=== PATIENT | female | born 1935 | race Asian ===

== ENCOUNTER 2017-09-29 13:52 | Emergency (ER) | payer MEDICARE ==
[2017-09-29 14:57] LABS: BASOPHILS % (AUTO) 0.7 % (0.0-5.0); EOSINOPHILS % (AUTO) 2.1 % (0.0-8.0); HEMATOCRIT 29.4 % (36-48); LYMPHOCYTES % (AUTO) 16.4 % (21.0-51.0); MEAN CORPUSCULAR HEMOGLOBIN 23.5 pg (27.0-33.0); MEAN CORPUSCULAR HGB CONC 32.9 g/dL (32.0-36.0); MEAN CORPUSCULAR VOLUME 71.5 fL (79-99); NEUTROPHILS % (AUTO) 64.8 % (40.0-77.0); NUCLEATED RED BLOOD CELLS 0.1 % (0.0-0.19); PLATELET COUNT (AUTO) 390 K/uL (130-400); RED BLOOD CELL COUNT(AUTO) 4.12 MIL/uL (4.00-5.50); RED CELL DISTRIBUTION WIDTH 14.6 % (11.0-15.5)
[2017-09-29 15:16] LABS: CREATININE 0.7 mg/dL (0.5-1.5); POTASSIUM 3.9 mmol/L (3.5-5.1)
[2017-09-29 15:20] LABS: ALBUMIN 3.7 g/dL (3.5-5.0); BILIRUBIN,TOTAL 0.7 mg/dL (0.2-1.0); TOTAL PROTEIN, SERUM 8.7 g/dL (6.0-8.3)
[2017-09-29] MEDS ORDERED: IPRATROPIUM/ALBUTEROL SULFATE 3 ML SOLUTION IH ONE (15:49)
[2017-09-29 18:08] LABS: CREATINE KINASE MB < 0.5 ng/mL (0.5-3.6); CREATINE KINASE, TOTAL 75 U/L (21-232)
== END 2017-09-29 18:49 | disposition home or self-care (01) ==
LOC: EDH 13:52
DX: J30.9 Allergic rhinitis, unspecified (principal); R05 Cough; I10 Essential (primary) hypertension; Z88.6 Allergy status to analgesic agent; Z91.041 Radiographic dye allergy status
CPT/HCPCS: 36415; 71045; 80053; 82550; 82553; 83880; 84484; 85025; 87804; 93005; 94640

== ENCOUNTER 2019-06-10 14:48 | Emergency (ER) | payer MEDICARE, MEDICAID ==
[2019-06-10 15:40] LABS: BASOPHILS % (AUTO) 0.4 % (0.0-5.0); EOSINOPHILS % (AUTO) 0.2 % (0.0-8.0); HEMATOCRIT 32.6 % (36-48); LYMPHOCYTES % (AUTO) 3.3 % (21.0-51.0); MEAN CORPUSCULAR HEMOGLOBIN 23.5 pg (27.0-33.0); MEAN CORPUSCULAR HGB CONC 31.8 g/dL (32.0-36.0); MEAN CORPUSCULAR VOLUME 73.6 fL (79-99); MONOCYTES % (AUTO) 8.7 % (3.0-13.0); NEUTROPHILS % (AUTO) 87.4 % (40.0-77.0); PLATELET COUNT (AUTO) 246 K/uL (130-400); RED BLOOD CELL COUNT(AUTO) 4.43 MIL/uL (4.00-5.50); RED CELL DISTRIBUTION WIDTH 13.9 % (11.0-15.5); WHITE BLOOD COUNT (AUTO) 15.8 K/uL (4.8-10.8)
[2019-06-10] MEDS ORDERED: ACETAMINOPHEN 325 MG TAB ONE (15:45)
[2019-06-10] MEDS ORDERED: TETANUS/DIPHTHERIA TOXOID [ADULT] 0.5 ML VIAL IM ONE (15:46)
[2019-06-10 16:16] LABS: CREATININE 0.8 mg/dL (0.5-1.5); POTASSIUM 3.7 mmol/L (3.5-5.1)
[2019-06-10 16:18] LABS: APPEARANCE,URINE Clear (CLEAR); BILIRUBIN,URINE Negative (NEGATIVE); COLOR,URINE Yellow (YELLOW); GLUCOSE, URINE (UA) Negative (NEGATIVE); KETONES,URINE Negative (NEGATIVE); LEUKOCYTE ESTERASE ,URINE Negative (NEGATIVE); NITRATE,URINE Negative (NEGATIVE); OCCULT BLOOD,URINE Negative (NEGATIVE); PH,URINE 7.5 (5.0-8.0); PROTEIN,URINE Trace mg/dL (NEGATIVE); UROBILINOGEN,URINE 0.2 mg/dL (0.2-1.0)
[2019-06-10 16:21] LABS: ALBUMIN 3.9 g/dL (3.5-5.0); BILIRUBIN,TOTAL 0.6 mg/dL (0.2-1.0)
[2019-06-10 16:48] LABS: BACTERIA,URINE Rare /HPF (None Seen); RBC,URINE 0-1 /HPF (0-1); SQUAMOUS EPITHELIAL CELL,UR Rare /HPF (0-2); WBC,URINE 0-1 /HPF (0-1)
[2019-06-10] MEDS ORDERED: OCTYL 2-CYANOACRYLATE 1 EACH TP ONE (18:15)
== END 2019-06-10 19:18 | disposition home or self-care (01) ==
LOC: EDH 14:48
DX: S22.32XA Fracture of one rib, left side, initial encounter for closed fracture (principal); S01.01XA Laceration without foreign body of scalp, initial encounter; S40.012A Contusion of left shoulder, initial encounter; M25.552 Pain in left hip; M25.562 Pain in left knee; I10 Essential (primary) hypertension; Z88.0 Allergy status to penicillin; Z88.6 Allergy status to analgesic agent; Z91.041 Radiographic dye allergy status; W18.39XA Other fall on same level, initial encounter; Y93.89 Activity, other specified; Y92.89 Other specified places as the place of occurrence of the external cause; Y99.8 Other external cause status
CPT/HCPCS: 12032; 36415; 70450; 71250; 72125; 73030; 73562; 74176; 80053; 81001; 82550; 84484; 85025; 90471; 90714; 93005

== ENCOUNTER 2019-06-17 03:02 | Emergency (ER) | payer MEDICARE, MEDICAID ==
[2019-06-17 03:35] LABS: APPEARANCE,URINE Clear (CLEAR); BILIRUBIN,URINE Negative (NEGATIVE); COLOR,URINE Yellow (YELLOW); GLUCOSE, URINE (UA) Negative (NEGATIVE); KETONES,URINE Negative (NEGATIVE); LEUKOCYTE ESTERASE ,URINE Negative (NEGATIVE); NITRATE,URINE Negative (NEGATIVE); OCCULT BLOOD,URINE Negative (NEGATIVE); PH,URINE 7.5 (5.0-8.0); PROTEIN,URINE Trace mg/dL (NEGATIVE); UROBILINOGEN,URINE 0.2 mg/dL (0.2-1.0)
[2019-06-17 03:48] LABS: BASOPHILS % (AUTO) 0.3 % (0.0-5.0); EOSINOPHILS % (AUTO) 0.1 % (0.0-8.0); HEMATOCRIT 31.7 % (36-48); LYMPHOCYTES % (AUTO) 9.9 % (21.0-51.0); MEAN CORPUSCULAR HEMOGLOBIN 23.9 pg (27.0-33.0); MEAN CORPUSCULAR HGB CONC 32.7 g/dL (32.0-36.0); MONOCYTES % (AUTO) 6.4 % (3.0-13.0); NEUTROPHILS % (AUTO) 83.3 % (40.0-77.0); NUCLEATED RED BLOOD CELLS 0.1 % (0.0-0.19); PLATELET COUNT (AUTO) 270 K/uL (130-400); RED BLOOD CELL COUNT(AUTO) 4.34 MIL/uL (4.00-5.50); RED CELL DISTRIBUTION WIDTH 14.2 % (11.0-15.5); WHITE BLOOD COUNT (AUTO) 8.6 K/uL (4.8-10.8)
[2019-06-17] MEDS ORDERED: SODIUM CHLORIDE 0.9% 500ML 500 ML IV ONE (03:49)
[2019-06-17] MEDS ORDERED: ACETAMINOPHEN EXTRA STRENGTH 500 MG TABLET ONE (03:49)
[2019-06-17 03:58] LABS: CREATININE 0.7 mg/dL (0.5-1.5); POTASSIUM 4.1 mmol/L (3.5-5.1)
[2019-06-17 04:03] LABS: ALBUMIN 3.9 g/dL (3.5-5.0); BILIRUBIN,TOTAL 0.8 mg/dL (0.2-1.0); TOTAL PROTEIN, SERUM 8.2 g/dL (6.0-8.3)
[2019-06-17 04:08] LABS: INR 0.96 (0.85-1.15); PARTIAL THROMBOPLASTIN TIME 27.1 SEC (26.3-35.5); PROTHROMBIN TIME 10.1 SEC (9.6-11.6)
[2019-06-17 04:22] LABS: B-TYPE NATRIURETIC PEPTIDE 49 pg/mL (0-100)
[2019-06-17] MEDS ORDERED: LIDOCAINE 5% TOPICAL PATCH TP ONE (05:24)
== END 2019-06-17 06:13 | disposition home or self-care (01) ==
LOC: EDH 03:02
DX: S00.83XA Contusion of other part of head, initial encounter (principal); I10 Essential (primary) hypertension; Z88.0 Allergy status to penicillin; Z91.041 Radiographic dye allergy status; W18.39XA Other fall on same level, initial encounter; Y93.89 Activity, other specified; Y92.89 Other specified places as the place of occurrence of the external cause; Y99.8 Other external cause status
CPT/HCPCS: 36415; 70450; 71046; 72100; 80053; 81003; 82550; 83605; 83880; 84484; 85025; 85610; 85730; 99285; J7040

== ENCOUNTER 2019-06-23 01:15 | Emergency (ER) | payer MEDICARE, MEDICAID ==
[2019-06-23] MEDS ORDERED: ONDANSETRON HCL 4 MG/2 ML VIAL ONE (01:48)
[2019-06-23] MEDS ORDERED: MORPHINE SULFATE 2 MG/ML 1ML SYG ONE (01:48)
[2019-06-23] MEDS ORDERED: SODIUM CHLORIDE 0.9% 1000ML 1,000 ML IV ONE (01:49)
[2019-06-23 01:51] LABS: BASOPHILS % (AUTO) 0.4 % (0.0-5.0); EOSINOPHILS % (AUTO) 0.7 % (0.0-8.0); HEMATOCRIT 32.7 % (36-48); LYMPHOCYTES % (AUTO) 16.7 % (21.0-51.0); MEAN CORPUSCULAR HEMOGLOBIN 23.6 pg (27.0-33.0); MEAN CORPUSCULAR HGB CONC 32.4 g/dL (32.0-36.0); MEAN CORPUSCULAR VOLUME 72.9 fL (79-99); MONOCYTES % (AUTO) 11.9 % (3.0-13.0); NEUTROPHILS % (AUTO) 70.3 % (40.0-77.0); NUCLEATED RED BLOOD CELLS 0.1 % (0.0-0.19); PLATELET COUNT (AUTO) 327 K/uL (130-400); RED BLOOD CELL COUNT(AUTO) 4.48 MIL/uL (4.00-5.50); RED CELL DISTRIBUTION WIDTH 14.2 % (11.0-15.5); WHITE BLOOD COUNT (AUTO) 10.5 K/uL (4.8-10.8)
[2019-06-23 02:01] LABS: INR 0.92 (0.85-1.15); PARTIAL THROMBOPLASTIN TIME 24.6 SEC (26.3-35.5); PROTHROMBIN TIME 9.7 SEC (9.6-11.6)
[2019-06-23 02:05] LABS: CREATININE 0.8 mg/dL (0.5-1.5); POTASSIUM 3.9 mmol/L (3.5-5.1)
[2019-06-23 02:10] LABS: BILIRUBIN,TOTAL 0.6 mg/dL (0.2-1.0); TOTAL PROTEIN, SERUM 8.5 g/dL (6.0-8.3)
[2019-06-23] MEDS ORDERED: FENTANYL CITRATE PF 50 MCG/1 ML 2ML VIAL ONE (02:49)
[2019-06-23] MEDS ORDERED: LIDOCAINE 5% TOPICAL PATCH TP ONE (03:41)
== END 2019-06-23 03:57 | disposition home or self-care (01) ==
LOC: EDH 01:15
DX: S42.292A Other displaced fracture of upper end of left humerus, initial encounter for closed fracture (principal); S09.8XXA Other specified injuries of head, initial encounter; I10 Essential (primary) hypertension; Z88.0 Allergy status to penicillin; Z88.6 Allergy status to analgesic agent; Z91.041 Radiographic dye allergy status; Z91.81 History of falling; W18.39XA Other fall on same level, initial encounter; Y93.89 Activity, other specified; Y92.098 Other place in other non-institutional residence as the place of occurrence of the external cause; Y99.8 Other external cause status
CPT/HCPCS: 36415; 70450; 71045; 73030; 73060; 80053; 82550; 84484; 85025; 85610; 85730; 93005; 96374; 96375; 99285; J2405; J3010; J7030

== ENCOUNTER 2019-06-24 12:04 | Inpatient (IN) | payer MEDICARE, MEDICAID ==
[~2019-06-24] VITALS: Ht 147.3 cm; Wt 53.4 kg
[2019-06-24] MEDS ORDERED: FENTANYL CITRATE PF 50 MCG/1 ML 2ML VIAL ONE (12:33)
[2019-06-24 13:04] LABS: BASOPHILS % (AUTO) 0.4 % (0.0-5.0); EOSINOPHILS % (AUTO) 0.8 % (0.0-8.0); HEMATOCRIT 28.7 % (36-48); LYMPHOCYTES % (AUTO) 8.4 % (21.0-51.0); MEAN CORPUSCULAR HEMOGLOBIN 23.6 pg (27.0-33.0); MEAN CORPUSCULAR HGB CONC 32.2 g/dL (32.0-36.0); MEAN CORPUSCULAR VOLUME 73.2 fL (79-99); MONOCYTES % (AUTO) 11.8 % (3.0-13.0); NEUTROPHILS % (AUTO) 78.6 % (40.0-77.0); PLATELET COUNT (AUTO) 274 K/uL (130-400); RED BLOOD CELL COUNT(AUTO) 3.92 MIL/uL (4.00-5.50); RED CELL DISTRIBUTION WIDTH 14.6 % (11.0-15.5)
[2019-06-24 13:12] LABS: CREATININE 0.7 mg/dL (0.5-1.5)
[2019-06-24 13:15] LABS: INR 0.91 (0.85-1.15); PARTIAL THROMBOPLASTIN TIME 27.5 SEC (26.3-35.5); PROTHROMBIN TIME 9.6 SEC (9.6-11.6)
[2019-06-24 13:19] LABS: ALBUMIN 3.5 g/dL (3.5-5.0); BILIRUBIN,TOTAL 0.5 mg/dL (0.2-1.0); TOTAL PROTEIN, SERUM 7.9 g/dL (6.0-8.3)
[2019-06-24] MEDS ORDERED: ZOLPIDEM TARTRATE 5 MG TAB PO PRN (14:30)
[2019-06-24] MEDS: LEVOFLOXACIN 500 MG/D5W 100 ML 100 ML IV SCH (14:30)
[2019-06-24] MEDS ORDERED: ACETAMINOPHEN 325 MG TAB PO PRN (14:30)
[2019-06-24] MEDS ORDERED: SODIUM CHLORIDE 0.9% 1000ML 1,000 ML IV SCH (14:45)
[2019-06-24] MEDS ORDERED: SODIUM CHLORIDE 0.9% 1000ML 1,000 ML IV ONE (15:35)
[2019-06-24 16:57] VITALS: BP 137/49
[2019-06-24] MEDS: MORPHINE SULFATE 2 MG/ML 1ML SYG IV PRN (17:32)
[2019-06-24 20:01] VITALS: BP 132/63
--- NOTE | 2019-06-24 20:30 | NUR ---
DR. KAMRYN SOLORZANO NOTIFIED UPON PATIENT ARRIVAL TO FLOOR. MD STATED DO NOT KEEP PATIENT NPO AND HE WILL SEE PATIENT TOMORROW.
[2019-06-24] MEDS: HYDROCODONE/ACETAMINOPHEN 5/325 MG TAB PO PRN (20:48)
[2019-06-24] MEDS: FAMOTIDINE/PF 20 MG/2 ML VIAL IV SCH (21:18)
[2019-06-25] MEDS: HYDROCODONE/ACETAMINOPHEN 5/325 MG TAB PO PRN ×3 (01:14→15:37)
[2019-06-25 04:16] VITALS: BP 136/62
[2019-06-25 04:17] LABS: HEMATOCRIT 27.2 % (36-48); MEAN CORPUSCULAR HGB CONC 33.4 g/dL (32.0-36.0); PLATELET COUNT (AUTO) 251 K/uL (130-400); RED BLOOD CELL COUNT(AUTO) 3.78 MIL/uL (4.00-5.50); RED CELL DISTRIBUTION WIDTH 14.5 % (11.0-15.5); WHITE BLOOD COUNT (AUTO) 11.3 K/uL (4.8-10.8)
[2019-06-25 04:26] LABS: INR 0.92 (0.85-1.15); PROTHROMBIN TIME 9.7 SEC (9.6-11.6)
[2019-06-25 04:47] LABS: ALBUMIN 3.3 g/dL (3.5-5.0); BILIRUBIN,TOTAL 0.7 mg/dL (0.2-1.0); CREATININE 0.7 mg/dL (0.5-1.5); POTASSIUM 3.9 mmol/L (3.5-5.1); TOTAL PROTEIN, SERUM 7.7 g/dL (6.0-8.3)
[2019-06-25] MEDS ORDERED: SODIUM CHLORIDE 0.9% 1000ML 1,000 ML IV SCH (06:00)
[2019-06-25 07:34] VITALS: BP 167/71
[2019-06-25] MEDS: FAMOTIDINE/PF 20 MG/2 ML VIAL IV SCH ×2 (08:42→20:09)
[2019-06-25] MEDS: ENOXAPARIN SODIUM 30 MG/0.3 ML SQ SCH (08:49)
--- NOTE | 2019-06-25 10:05 | NUR ---
Nutrition Intervention: Nutrition consult due to poor appetite, plan for surgery. Pt. on GI soft [place] diet. Pt. reports good p.o. intake this morning. Spoke with pt. regarding nutritional supplementation and pt. agreed to try. Labs reviewed(Alb 3.3). LBM: 06/24/19, per pt. clara FINK. BMI: 24.3, normal. Recommendations: 1) Rec. Vanilla Ensure QD with lunch meal. 2) Continue to monitor pt's nutritional status. 3) Consult RD as nutrition concerns arise. Addendum: 06/25/19 at [address] Amended: Links added.
[2019-06-25 11:09] VITALS: BP 128/58
[2019-06-25] MEDS: MORPHINE SULFATE 2 MG/ML 1ML SYG IV PRN (11:51)
[2019-06-25] MEDS: LEVOFLOXACIN 500 MG/D5W 100 ML 100 ML IV SCH (14:46)
[2019-06-25 16:59] VITALS: BP 147/71
[2019-06-25] MEDS: ONDANSETRON HCL 4 MG/2 ML VIAL IV PRN (17:40)
[2019-06-25] MEDS ORDERED: AMLO5TAB9 PO (18:44)
[2019-06-25] MEDS ORDERED: SOLI10TA PO (18:44)
[2019-06-25] MEDS ORDERED: CELE-84 PO (18:44)
[2019-06-25] MEDS ORDERED: OMEP20TA25 PO (18:44)
[2019-06-25] MEDS ORDERED: MONT10TA24 PO (18:44)
[2019-06-25 19:03] VITALS: BP 138/62
[2019-06-25 21:58] LABS: APPEARANCE,URINE Clear (CLEAR); BILIRUBIN,URINE Negative (NEGATIVE); COLOR,URINE Yellow (YELLOW); GLUCOSE, URINE (UA) Negative (NEGATIVE); KETONES,URINE Negative (NEGATIVE); LEUKOCYTE ESTERASE ,URINE Trace (NEGATIVE); NITRATE,URINE Negative (NEGATIVE); OCCULT BLOOD,URINE Negative (NEGATIVE); PH,URINE 6.5 (5.0-8.0); PROTEIN,URINE POS 1+ mg/dL (NEGATIVE)
[2019-06-25 22:03] LABS: BACTERIA,URINE Few /HPF (None Seen); MUCUS,URINE Moderate LPF (None Seen)
[2019-06-25 23:45] VITALS: BP 134/61
[2019-06-26] MEDS: HYDROCODONE/ACETAMINOPHEN 5/325 MG TAB PO PRN ×3 (00:31→22:49)
[2019-06-26 03:30] VITALS: BP 143/61
[2019-06-26 05:28] LABS: HEMATOCRIT 25.5 % (36-48); MEAN CORPUSCULAR HEMOGLOBIN 23.9 pg (27.0-33.0); MEAN CORPUSCULAR HGB CONC 33.6 g/dL (32.0-36.0); MEAN CORPUSCULAR VOLUME 71.2 fL (79-99); NUCLEATED RED BLOOD CELLS 0.1 % (0.0-0.19); PLATELET COUNT (AUTO) 262 K/uL (130-400); RED BLOOD CELL COUNT(AUTO) 3.57 MIL/uL (4.00-5.50); RED CELL DISTRIBUTION WIDTH 14.2 % (11.0-15.5); WHITE BLOOD COUNT (AUTO) 11.5 K/uL (4.8-10.8)
[2019-06-26 05:29] LABS: CREATININE 0.6 mg/dL (0.5-1.5); POTASSIUM 3.6 mmol/L (3.5-5.1)
[2019-06-26 07:54] VITALS: BP 128/60
[2019-06-26] MEDS: LACTULOSE 20 GM/30 ML UDCUP PO PRN (09:56)
[2019-06-26] MEDS: ENOXAPARIN SODIUM 30 MG/0.3 ML SQ SCH (09:57)
[2019-06-26] MEDS: FAMOTIDINE/PF 20 MG/2 ML VIAL IV SCH ×2 (09:57→19:41)
[2019-06-26 11:04] VITALS: BP 136/62
[2019-06-26] MEDS ORDERED: LIDOCAINE 5% TOPICAL PATCH TP SCH (12:30)
[2019-06-26] MEDS: ONDANSETRON HCL 4 MG/2 ML VIAL IV PRN (12:31)
[2019-06-26 15:57] VITALS: BP 126/52
[2019-06-26] MEDS: MORPHINE SULFATE 2 MG/ML 1ML SYG IV PRN (17:29)
[2019-06-26] MEDS: LEVOFLOXACIN 500 MG/D5W 100 ML 100 ML IV SCH (17:33)
[2019-06-26 19:05] VITALS: BP 124/64
[2019-06-26 23:03] VITALS: BP 145/61
[2019-06-27] VITALS (23 sets, daily range): BP systolic 106–168; BP diastolic 43–104
[2019-06-27] MEDS: MORPHINE SULFATE 2 MG/ML 1ML SYG IV PRN (03:49)
[2019-06-27 05:55] LABS: HEMATOCRIT 26.5 % (36-48); MEAN CORPUSCULAR HEMOGLOBIN 23.9 pg (27.0-33.0); MEAN CORPUSCULAR HGB CONC 32.9 g/dL (32.0-36.0); MEAN CORPUSCULAR VOLUME 72.5 fL (79-99); PLATELET COUNT (AUTO) 268 K/uL (130-400); RED BLOOD CELL COUNT(AUTO) 3.66 MIL/uL (4.00-5.50); RED CELL DISTRIBUTION WIDTH 14.7 % (11.0-15.5); WHITE BLOOD COUNT (AUTO) 11.7 K/uL (4.8-10.8)
[2019-06-27 06:05] LABS: CREATININE 0.6 mg/dL (0.5-1.5); POTASSIUM 3.9 mmol/L (3.5-5.1)
[2019-06-27] MEDS ORDERED: LACTATED RINGERS 1000ML 1,000 ML IV ONE (06:38)
[2019-06-27] MEDS ORDERED: LIDOCAINE PF 2% 5ML ABBOJECT ONE (07:09)
[2019-06-27] MEDS ORDERED: DEXAMETHASONE SOD PHOSPHATE 10MG/ML 1ML VIAL ONE (07:09)
[2019-06-27] MEDS ORDERED: ONDANSETRON HCL 4 MG/2 ML VIAL ONE (07:09)
[2019-06-27] MEDS ORDERED: GLYCOPYRROLATE 1 MG/5 ML SYRINGE ONE (07:09)
[2019-06-27] MEDS ORDERED: ROCURONIUM 10MG/1ML SYR 10 MG/ML ML ONE (07:09)
[2019-06-27] MEDS ORDERED: PROPOFOL 10 MG/ML 20ML VIAL IV ONE (07:09)
[2019-06-27] MEDS ORDERED: NEOSTIGMINE 5MG/5ML SYR IV ONE (07:09)
[2019-06-27] MEDS ORDERED: MIDAZOLAM HCL 1 MG/ML 2ML VIAL ONE (07:09)
[2019-06-27] MEDS ORDERED: FENTANYL CITRATE PF 50 MCG/1 ML 5ML AMP IV ONE (07:10)
[2019-06-27] MEDS ORDERED: EPHEDRINE SULFATE 50 MG/ML AMPULE ONE (07:31)
[2019-06-27] MEDS ORDERED: PHENYLEPHRINE HCL 10 MG/ML 1ML VIAL IV ONE ×2 (07:34→07:36)
[2019-06-27] MEDS ORDERED: CLINDAMYCIN 600 MG/D5% WATER 50 ML IV ONE (07:44)
[2019-06-27] MEDS: CELECOXIB 200 MG CAP PO SCH (09:00)
[2019-06-27] MEDS: ENOXAPARIN SODIUM 30 MG/0.3 ML SQ SCH (09:00)
[2019-06-27] MEDS: FAMOTIDINE/PF 20 MG/2 ML VIAL IV SCH ×2 (09:00→19:55)
[2019-06-27] MEDS: AMLODIPINE BESYLATE 5 MG TAB PO SCH (09:00)
[2019-06-27] MEDS: **HM** VESICARE 10MG PO SCH (09:00)
[2019-06-27] MEDS: MONTELUKAST SODIUM 10 MG TAB PO SCH (09:00)
--- NOTE | 2019-06-27 11:00 | NUR ---
FRIDA CHOSEN- FAHEEM PFEIFFER OMAR OBTAINED FORM DAUGHTER RICH PHILLIPS SENT [facility]- PT NOTES FORM PRIOR TO THE SURGERY PENDING AUTH- 24-48 HRS Addendum: 06/28/19 at 1732 by DARRYN GONZALEZ RN CM Amended: Links added.
[2019-06-27] MEDS ORDERED: LORAZEPAM 2 MG/ML 1 ML VIAL ONE (12:18)
--- NOTE | 2019-06-27 12:50 | NUR ---
AGITATED PATIENT AAOX1, AGITATED, RESTLESS. FAMILY AT BEDSIDE, PATIENT ATTEMPTING TO GET OUT OF BED, PULL ON DRESSING TO LEFT SHOULDER AND REMOVE IV. MITTEN PLACED ON PATIENT FOR SAFETY. BED LOW AND LOCKED. STRUCTURAL METAL FABRICATOR APPRENTICE PAGED, NEW ORDER FOR ATIVAN 0.25MG IV X1 DOSE. WILL GIVE IV ORDERED.
[2019-06-27] MEDS: LIDOCAINE 5% TOPICAL PATCH TP SCH (13:00)
[2019-06-27] MEDS ORDERED: LORAZEPAM 2 MG/ML 1 ML VIAL IVP SCH (13:00)
[2019-06-27] MEDS: LEVOFLOXACIN 500 MG/D5W 100 ML 100 ML IV SCH (15:03)
[2019-06-27] MEDS ORDERED: POTASSIUM CHLORIDE 20MEQ/100ML 100 ML IV PRN (15:45)
[2019-06-27] MEDS ORDERED: POTASSIUM CHLORIDE 20 MEQ ERTAB PO PRN (15:45)
[2019-06-27] MEDS ORDERED: FE FUMARATE/FA/MV, MIN COMB#15 1 TAB PO PRN (15:45)
[2019-06-27] MEDS: CLINDAMYCIN 600 MG/D5% WATER 50 ML IV SCH ×2 (17:15→23:53)
[2019-06-27] MEDS ORDERED: LORAZEPAM 2 MG/ML 1 ML VIAL IVP PRN (17:30)
[2019-06-28 00:15] VITALS: BP 165/74
[2019-06-28] MEDS: MORPHINE SULFATE 2 MG/ML 1ML SYG IV PRN ×2 (03:19→11:44)
[2019-06-28 04:18] VITALS: BP 160/72
[2019-06-28 05:15] LABS: HEMATOCRIT 23.4 % (36-48); MEAN CORPUSCULAR HEMOGLOBIN 24.1 pg (27.0-33.0); MEAN CORPUSCULAR HGB CONC 33.5 g/dL (32.0-36.0); MEAN CORPUSCULAR VOLUME 71.9 fL (79-99); PLATELET COUNT (AUTO) 261 K/uL (130-400); RED BLOOD CELL COUNT(AUTO) 3.26 MIL/uL (4.00-5.50); RED CELL DISTRIBUTION WIDTH 15.1 % (11.0-15.5); WHITE BLOOD COUNT (AUTO) 14.4 K/uL (4.8-10.8)
[2019-06-28 05:33] LABS: CREATININE 0.7 mg/dL (0.5-1.5); POTASSIUM 3.4 mmol/L (3.5-5.1)
[2019-06-28] MEDS: **HM** VESICARE 10MG PO SCH (07:23)
[2019-06-28 07:35] LABS: LYMPHOCYTES % (MANUAL) 5 % (22-44); MONOCYTES % (MANUAL) 6 % (2-9); SEGMENTED NEUTROPHILS % 89 % (40-70)
[2019-06-28 07:36] LABS: MAN.DIFF COMMENT-IMPRESSION MANUAL DIFFERENTIAL; PLATELET MORPHOLOGY COMMENT ADEQUATE
[2019-06-28] MEDS ORDERED: HYDRALAZINE HCL 20 MG/ML VIAL IV PRN (08:15)
[2019-06-28 08:35] VITALS: BP 141/72
[2019-06-28] MEDS: CELECOXIB 200 MG CAP PO SCH (09:04)
[2019-06-28] MEDS: POTASSIUM CHLORIDE 10% ELIXIR 20 MEQ/15 ML UDCUP PO PRN ×2 (09:04→11:44)
[2019-06-28] MEDS: MONTELUKAST SODIUM 10 MG TAB PO SCH (09:04)
[2019-06-28] MEDS: AMLODIPINE BESYLATE 5 MG TAB PO SCH (09:04)
[2019-06-28] MEDS: LIDOCAINE 5% TOPICAL PATCH TP SCH (09:04)
[2019-06-28] MEDS: ENOXAPARIN SODIUM 30 MG/0.3 ML SQ SCH (09:05)
[2019-06-28] MEDS: FAMOTIDINE/PF 20 MG/2 ML VIAL IV SCH ×2 (09:05→21:31)
[2019-06-28] MEDS: LEVOFLOXACIN 500 MG/D5W 100 ML 100 ML IV SCH (15:37)
[2019-06-28] MEDS: HYDROCODONE/ACETAMINOPHEN 5/325 MG TAB PO PRN (15:46)
[2019-06-28] MEDS ORDERED: ACETAMINOPHEN-CODEINE ELIXIR 5 ML UDCUP PO PRN (16:00)
[2019-06-28 16:05] VITALS: BP 100/50
[2019-06-28] MEDS: ONDANSETRON HCL 4 MG/2 ML VIAL IV PRN (17:06)
[2019-06-28 19:00] VITALS: BP 112/55
[2019-06-28] MEDS: ACETAMINOPHEN-CODEINE ELIXIR 5 ML UDCUP PO PRN (21:16)
[2019-06-28] MEDS: LACTULOSE 20 GM/30 ML UDCUP PO PRN (21:35)
[2019-06-28 23:06] VITALS: BP 115/60
[2019-06-29] MEDS: ACETAMINOPHEN-CODEINE ELIXIR 5 ML UDCUP PO PRN ×3 (02:46→21:00)
[2019-06-29 03:00] VITALS: BP 129/62
[2019-06-29 06:03] LABS: HEMATOCRIT 22.1 % (36-48); MEAN CORPUSCULAR HEMOGLOBIN 23.6 pg (27.0-33.0); MEAN CORPUSCULAR HGB CONC 32.7 g/dL (32.0-36.0); MEAN CORPUSCULAR VOLUME 72.2 fL (79-99); PLATELET COUNT (AUTO) 250 K/uL (130-400); RED BLOOD CELL COUNT(AUTO) 3.05 MIL/uL (4.00-5.50); RED CELL DISTRIBUTION WIDTH 14.7 % (11.0-15.5); WHITE BLOOD COUNT (AUTO) 14.2 K/uL (4.8-10.8)
[2019-06-29 06:20] LABS: CREATININE 0.7 mg/dL (0.5-1.5); POTASSIUM 4.5 mmol/L (3.5-5.1)
[2019-06-29 06:47] LABS: LYMPHOCYTES % (MANUAL) 5 % (22-44); MONOCYTES % (MANUAL) 12 % (2-9); SEGMENTED NEUTROPHILS % 83 % (40-70)
[2019-06-29 06:48] LABS: MAN.DIFF COMMENT-IMPRESSION MANUAL DIF
[2019-06-29 06:49] LABS: PLATELET MORPHOLOGY COMMENT ADEQUATE
--- NOTE | 2019-06-29 06:52 | NUR ---
ROLDAN storey manager inpatient rounded and updated on pts.status,labs,c/o frequency urination.She will put her order.
[2019-06-29 07:15] VITALS: BP 134/64
[2019-06-29] MEDS: **HM** VESICARE 10MG PO SCH (09:00)
[2019-06-29] MEDS: ENOXAPARIN SODIUM 30 MG/0.3 ML SQ SCH (10:04)
[2019-06-29] MEDS: AMLODIPINE BESYLATE 5 MG TAB PO SCH (10:04)
[2019-06-29] MEDS: MONTELUKAST SODIUM 10 MG TAB PO SCH (10:04)
[2019-06-29] MEDS: FAMOTIDINE/PF 20 MG/2 ML VIAL IV SCH ×2 (10:04→20:52)
[2019-06-29] MEDS: CELECOXIB 200 MG CAP PO SCH (10:04)
[2019-06-29] MEDS: LIDOCAINE 5% TOPICAL PATCH TP SCH (10:05)
[2019-06-29 11:36] VITALS: BP 117/60
[2019-06-29 16:00] VITALS: BP 131/50
[2019-06-29] MEDS: LEVOFLOXACIN 500 MG/D5W 100 ML 100 ML IV SCH (17:15)
[2019-06-29 20:00] VITALS: BP 105/60
[2019-06-30] VITALS: BP 125/54
[2019-06-30 04:00] VITALS: BP 110/51
[2019-06-30 06:05] LABS: BASOPHILS % (AUTO) 0.3 % (0.0-5.0); HEMATOCRIT 21.1 % (36-48); LYMPHOCYTES % (AUTO) 6.5 % (21.0-51.0); MEAN CORPUSCULAR HEMOGLOBIN 24.2 pg (27.0-33.0); MEAN CORPUSCULAR HGB CONC 33.7 g/dL (32.0-36.0); MEAN CORPUSCULAR VOLUME 71.8 fL (79-99); NEUTROPHILS % (AUTO) 81.2 % (40.0-77.0); PLATELET COUNT (AUTO) 289 K/uL (130-400); RED BLOOD CELL COUNT(AUTO) 2.94 MIL/uL (4.00-5.50); RED CELL DISTRIBUTION WIDTH 15.2 % (11.0-15.5)
[2019-06-30 06:22] LABS: CREATININE 0.6 mg/dL (0.5-1.5); POTASSIUM 3.9 mmol/L (3.5-5.1)
[2019-06-30 07:30] VITALS: BP 136/58
[2019-06-30] MEDS: **HM** VESICARE 10MG PO SCH (09:00)
[2019-06-30] MEDS: MONTELUKAST SODIUM 10 MG TAB PO SCH (09:21)
[2019-06-30] MEDS: FAMOTIDINE/PF 20 MG/2 ML VIAL IV SCH (09:21)
[2019-06-30] MEDS: CELECOXIB 200 MG CAP PO SCH (09:21)
[2019-06-30] MEDS: AMLODIPINE BESYLATE 5 MG TAB PO SCH (09:21)
[2019-06-30] MEDS: LIDOCAINE 5% TOPICAL PATCH TP SCH (09:23)
[2019-06-30] MEDS: ENOXAPARIN SODIUM 30 MG/0.3 ML SQ SCH (09:24)
[2019-06-30] MEDS: ACETAMINOPHEN-CODEINE ELIXIR 5 ML UDCUP PO PRN (09:25)
[2019-06-30] MEDS ORDERED: ACET1TAB12 PO (10:10)
--- NOTE | 2019-06-30 10:20 | NUR ---
MALOU Note: [facility] pending ins auth CM spoke to Fabiola victor/Hector Dietrich, received updated clinicals. Pt still pending ins auth at this time. Primary nurse aware. CM to cont to follow up.
[2019-06-30] MEDS ORDERED: ACET5ELI PO (10:29)
[2019-06-30] MEDS ORDERED: BISACODYL 5 MG TABLET.DR PO ONE (10:30)
[2019-06-30 11:00] VITALS: BP 134/61
--- NOTE | 2019-06-30 13:53 | NUR ---
Nutrition f/u: Followed up with patient and appetite improvement. As per FIELD SUPPORT SPECIALIST, pt with good PO intake for breakfast, lunch was pending. Pt encouraged to continue taking nutrition supplement. Provider at bedside, stated pt drinks Ensures well. Recommendation: Continue current diet therapy. Feeding assistance when family is not present. Consult RD as nutrition concerns arise. Addendum: 06/30/19 at [address] Amended: Links added.
--- NOTE | 2019-06-30 14:55 | NUR ---
MALOU Note: [facility] [employer] ins auth Spoke to Yari victor/[employer]. Pt has ins auth, safe to transfer via [employer] transport van. Primary nurse and charge nurse made aware. CM to cont to follow up.
[2019-06-30] MEDS: LEVOFLOXACIN 500 MG/D5W 100 ML 100 ML IV SCH (15:18)
[2019-06-30] MEDS ORDERED: BISACODYL 10 MG SUPP.RECT RC PRN (15:45)
[2019-06-30 16:00] VITALS: BP 145/49
--- NOTE | 2019-06-30 18:00 | NUR ---
NOTE DISCHARGE ISNTRUCTIONS GIVEN TO DAUGHTER. VERBALIZED UDNERSTANDING. REPORT CALLED TO FAHEEM PFEIFFER SPOKE TO YASIR. MED REC AND OTHER ORDERS FROM DR HARRY SENT TO FAHEEM PFEIFFER. SHE HAS BEEN STABLE THROUGHOUT THE DAY. DOES NOT C/O PAIN ONLY WHEN P.T. WORKS WITH HER. SHE HAS EXCELLENT LEFT RADIAL AND ULNAR PULSES. NO OTHER PROBLEMS VOICED. SHE DID HAVE BM FINALLY ABOUT ONE HOUR AGO AFTER GIVEN DULCOLAX AND LACTULOSE PRN. FAMILY AT HER SIDE JUST WAITING FOR TRANSPORT VAN.
== END 2019-06-30 18:50 | DRG 483 ==
LOC: EDH 12:04 → EDHIP 14:26 → 4AH 16:25 → 3CH 06-28 18:50
PROVIDERS: ADMIT Internal Medicine; ATTEND Internal Medicine
PROC: 0RRK00Z Replacement of Left Shoulder Joint with Reverse Ball and Socket Synthetic Substitute, Open Approach (ICD-10-PCS; principal; 2019-06-27 07:00)
DX: S42.202A Unspecified fracture of upper end of left humerus, initial encounter for closed fracture (principal); E87.1 Hypo-osmolality and hyponatremia; E87.8 Other disorders of electrolyte and fluid balance, not elsewhere classified; E78.5 Hyperlipidemia, unspecified; E87.6 Hypokalemia; I10 Essential (primary) hypertension; M81.0 Age-related osteoporosis without current pathological fracture; Z88.0 Allergy status to penicillin; Z88.8 Allergy status to other drugs, medicaments and biological substances; Z88.6 Allergy status to analgesic agent; Z91.041 Radiographic dye allergy status; D72.829 Elevated white blood cell count, unspecified; W01.0XXA Fall on same level from slipping, tripping and stumbling without subsequent striking against object, initial encounter; Y93.89 Activity, other specified; Y92.009 Unspecified place in unspecified non-institutional (private) residence as the place of occurrence of the external cause; Y99.8 Other external cause status
CPT/HCPCS: 36415; 70450; 71045; 73030; 73060; 80048; 80053; 81001; 82550; 84484; 85025; 85027; 85610; 85730; 86850; 86900; 86901; 86922; 88304; 88311; 93005; 96374; 96375; 97039; G0378; J1100; J1650; J1956; J2001; J2060; J2250; J2370; J2405; J2704; J2710; J3010; J3490; J7030; J7120